=== PATIENT | female | born 1990 | race Caucasian/White ===

== ENCOUNTER 2023-05-05 12:02 | Outpatient (CLI) | payer OTHER, SELFPAY ==
--- NOTE | 2023-05-05 12:15 | CRLHL7_ITS ---
For Patients: As a result of the Cures Act, medical imaging exams and procedure reports are released immediately into your electronic medical record. You may view this report before your referring provider. If you have questions, please contact your health care provider. INDICATION: First trimester scan, establish dates. COMPARISON: None. TECHNIQUE: Real-time nelson-scale imaging of the pelvis was performed. FINDINGS: Sonographic imaging demonstrates a single living intrauterine gestation. The embryo demonstrates a regular cardiac rate measuring 159 beats per minute. The embryo`s crown-rump length measurement of 4.1 cm corresponds to a gestational age of 11 weeks 0 days with a sonographic due date of 11/24/2023. The yolk sac is not visualized. There are no gross abnormalities noted within the embryo at this early state of development. The gestational sac has a normal appearance. There is a 2.6 x 0.4 x 6.8 cm perigestational hemorrhage. The amount of fluid within the sac appears appropriate for gestational age. The cervix is closed. The myometrium appears normal. The ovaries are of normal size. There are no suspicious fluid collections noted in the cul-de-sac. IMPRESSION: Single living intrauterine with sonographic gestational age 11 weeks 0 days and sonographic due date 11/24/2023. Curvilinear inferior subchorionic hemorrhage measuring 2.6 x 0.4 x 6.8 cm. Dictated by Hema Jacob MD @ 05/09/2023 6:44:14 AM (Electronically Signed)
== END 2023-05-05 12:03 | disposition home or self-care (01) ==
PROVIDERS: Visit Provider Registered Nurse
DX: Z34.91 Encounter for supervision of normal pregnancy, unspecified, first trimester (principal); Z3A.10 10 weeks gestation of pregnancy
CPT/HCPCS: 76801; 86592; 86703; 86704; 86706; 86762; 86787; 86803; 86850; 86900; 86901; 87086; 87340; 87491; 87591

== ENCOUNTER 2023-09-05 08:50 | Outpatient (CLI) | payer OTHER, SELFPAY | END 2023-09-05 08:51 | disposition home or self-care (01) | LOC: NFLDREF 09-08 06:47 | PROVIDERS: Visit Provider Obstetrics & Gynecology | DX: Z34.83 Encounter for supervision of other normal pregnancy, third trimester (principal) | CPT/HCPCS: 86592 ==

== ENCOUNTER 2023-10-20 15:18 | Outpatient (CLI) | payer OTHER, SELFPAY ==
[2023-10-20 15:31] VITALS: PULSE 75; O2SAT 98
[2023-10-20 15:34] VITALS: RESP 16; TEMP 36.6
[2023-10-20 15:38] VITALS: BP 131/75; PULSE 63
[2023-10-20 15:54] VITALS: BP 117/67; PULSE 63
--- NOTE | 2023-10-20 17:36 | PC.OBNST ---
NST Note NST Note Start: 10/20/23 15:30 Freq: ONCE Status: Active Protocol: Document 10/20/23 15:57 WK (Rec: 10/20/23 17:36 WK [id number]) NST Note 3 Para (# of births) 1 EDC 11/27/23 Gestational Age In Weeks & Days 34 Weeks & 4 Days Patient Presented with Complaint(s) of Other Other Complaints Pt was seen in the [facility] for her routine clinic visit. Unsure about what the provider was hearing on the doppler, she was placed on the EFM down at the [facility]. She was then sent down to the Center for continued EFM monitoring to further evaluate the FHR. Reactive Yes Appropriate for Gestational Age Yes RN Raven RNC Date 10/20/23 Reactive Yes Appropriate for Gestational Age Yes RN Leonila RN Date 10/20/23 OB NST charge Yes Complete NST Note via Write Note Yes The provider's electronic signature indicates the NST is reactive/appropriate for gestational age. *Note to provider: If an addendum is required, open the patient's chart and click on the note under the Nurse/Allied Health tab.
== END 2023-10-20 16:50 | disposition home or self-care (01) ==
LOC: OB OUT 15:19 → OB 15:20 → OB OUT 15:22
PROVIDERS: Visit Provider Obstetrics & Gynecology
DX: O35.BXX0 Maternal care for other (suspected) fetal abnormality and damage, fetal cardiac anomalies, not applicable or unspecified (principal); Z3A.34 34 weeks gestation of pregnancy
CPT/HCPCS: 59025; G0463

== ENCOUNTER 2023-11-01 09:05 | Outpatient (CLI) | payer OTHER, SELFPAY ==
--- NOTE | 2023-11-01 09:15 | CRLHL7_ITS ---
For Patients: As a result of the Century Cures Act, medical imaging exams and procedure reports are released immediately into your electronic medical record. You may view this report before your referring provider. If you have questions, please contact your health care provider. INDICATION: SUPERVISION OF ELDERLY MULTIGRAVIDA COMPARISON: 05/05/2023 TECHNIQUE: Real time nelson scale imaging of the fetus was performed and spectral Doppler analysis of the umbilical artery. FINDINGS: Sonographic imaging demonstrates a single living intrauterine gestation. Fetus demonstrates a regular cardiac rate of 125 beats per minute. Fetus has a vertex position. The placenta lies anteriorly. Amniotic fluid volume appears normal and there is a single deepest vertical pocket: 5.7 cm. The estimated weight is 2917gm which lies at the 55th %. BPD 70th percentile. HC 57th percentile. AC 62nd percentile. FL 32nd percentile. The HC/AC ratio measures 1.02 range (0.92-1.06). IMPRESSION: Sonographic gestational age 36 weeks 4 days and sonographic due date of 11/25/2023. Good correlation with dates. Estimated weight 55th percentile. Abdominal circumference 62nd percentile. Dictated by Hema Jacob MD @ 11/01/2023 12:16:16 PM (Electronically Signed)
== END 2023-11-01 09:06 | disposition home or self-care (01) ==
LOC: US 09:05
PROVIDERS: Visit Provider Obstetrics & Gynecology
DX: O09.523 Supervision of elderly multigravida, third trimester (principal); Z3A.36 36 weeks gestation of pregnancy
CPT/HCPCS: 76816; 87081; 87653

== ENCOUNTER 2024-01-05 09:06 | Outpatient (CLI) | payer OTHER, SELFPAY | END 2024-01-05 09:07 | disposition home or self-care (01) | LOC: NFLDREF 09:07 | PROVIDERS: Visit Provider Midwife | DX: N81.10 Cystocele, unspecified (principal); Z39.1 Encounter for care and examination of lactating mother | CPT/HCPCS: 84443 ==

== ENCOUNTER 2025-02-05 13:54 | Outpatient (CLI) | payer BC, SELFPAY ==
--- NOTE | 2025-02-05 14:00 | CRLHL7_ITS ---
For Patients: As a result of the Cures Act, medical imaging exams and procedure reports are released immediately into your electronic medical record. You may view this report before your referring provider. If you have questions, please contact your health care provider. OBSTETRICAL ULTRASOUND TRANSABDOMINAL, 02/05/2025 CLINICAL INDICATION: Dating and viability. LMP: 11/12/2024 CARLEE by LMP: 08/19/2025 Gestational age: 12 weeks 1 day Previous ultrasound: No TECHNIQUE: Real-time nelson-scale imaging of the fetus was performed transabdominal. Transvaginal imaging was not performed. FINDINGS: CRL: 5.9 cm, 12 weeks 3 days; CARLEE 08/17/2025 heart rate: 155 BPM Gestational sac: 6.0 cm, appears within normal limits Yolk sac: Not visualized Right ovary: 4.3 x 1.6 x 3.9 cm, CL Left ovary: Not visualized IMPRESSION: Single living intrauterine measuring 12 weeks 3 days with sonographic due date of 08/17/2025. HEMA NJ M.D. Diagnostic Radiologist [email or web address] Transcribed: 4:[address]/Dictated by: Hema Nj MD @ 02/05/2025 4:23:00 PM (Electronically Signed)
== END 2025-02-05 13:55 | disposition home or self-care (01) ==
LOC: US 13:56
PROVIDERS: Visit Provider Advanced Practice Midwife
DX: Z34.91 Encounter for supervision of normal pregnancy, unspecified, first trimester (principal); Z3A.12 12 weeks gestation of pregnancy
CPT/HCPCS: 76801

== ENCOUNTER 2025-02-05 15:14 | Outpatient (CLI) | payer BC, SELFPAY | END 2025-02-05 15:15 | disposition home or self-care (01) | PROVIDERS: Visit Provider Advanced Practice Midwife | DX: Z34.91 Encounter for supervision of normal pregnancy, unspecified, first trimester (principal) | CPT/HCPCS: 83020; 83021; 85660; 86592; 86703; 86704; 86706; 86762; 86787; 86803; 87086; 87340 ==

== ENCOUNTER 2025-04-02 14:34 | Outpatient (CLI) | payer BC, SELFPAY ==
[2025-04-02 21:35] LABS: Chlamydia DNA Amplified* NOT DETECTED (No Detected); GC DNA Amplified* NOT DETECTED (No Detected)
== END 2025-04-02 14:35 | disposition home or self-care (01) ==
LOC: NFLDREF 14:35
PROVIDERS: Visit Provider Obstetrics & Gynecology
DX: Z34.82 Encounter for supervision of other normal pregnancy, second trimester (principal)
CPT/HCPCS: 87086; 87491; 87591

== ENCOUNTER 2025-06-04 13:42 | Outpatient (CLI) | payer BC, SELFPAY | END 2025-06-04 13:43 | disposition home or self-care (01) | LOC: NFLDREF 06-11 02:35 | PROVIDERS: Visit Provider Obstetrics & Gynecology | DX: Z34.93 Encounter for supervision of normal pregnancy, unspecified, third trimester (principal) | CPT/HCPCS: 86762; 86780 ==